=== PATIENT | female | born 1995 | race Caucasian/White ===

== ENCOUNTER 2019-08-11 18:04 | Emergency (ER) | payer SELFPAY ==
[2019-08-11 19:56] LABS: Urine Blood TRACE (NEG); Urine Glucose NEGATIVE (NEG); Urine Protein NEGATIVE (NEG); Urine Specific Gravity <1.005 (1.005-1.030)
[2019-08-11] MEDS ORDERED: METHOCARBAMOL 1,000 MG/10 ML VIAL IV ONE (20:00)
[2019-08-11] MEDS ORDERED: NA CHLORIDE 0.9% 100 ML IV ONE (20:00)
[2019-08-11] MEDS ORDERED: KETOROLAC 30 MG/ML INJ ONE (20:00)
[2019-08-11] MEDS ORDERED: dexAMETHasone 10 MG/ML VIAL ONE (20:00)
[2019-08-11] MEDS ORDERED: FENTANYL CITR 100 MCG/2 ML ONE ×2 (21:10→22:31)
[2019-08-11] MEDS ORDERED: ONDANSETRON 4 MG/2 ML VIAL ONE (21:10)
--- NOTE | 2019-08-11 22:13 | ER ---
Nurse's Notes [facility] Name: Elvia Lee Age: 24 yrs Sex: Female : 1995 Arrival Date: 08/11/2019 Time: 18:07 Bed 15 Private MD: Diagnosis: Radiculopathy, lumbar region Presentation: 08/11 18:12 Presenting complaint: Patient states: L lower back pain, hip pain that radiates to the ca1 L leg. Pt stated, "I had a back surgery 7 years ago. L4 was broke and they placed 2 plates and 6 rods. This is the worst pain in my life. I cannot sit comfortably and it hurts more when I walk". Denies fever, N/V, urinary S/S. Denies any injury to the area. Transition of care: patient was not received from another setting of care. Onset of symptoms was August 09, 2019. Risk Assessment: Do you want to hurt yourself or someone else? Patient reports no desire to harm self or others. Initial Sepsis Screen: Does the patient meet any 2 criteria? No. Patient's initial sepsis screen is negative. Does the patient have a suspected source of infection? No. Patient's initial sepsis screen is negative. Care prior to arrival: None. 18:12 Method Of Arrival: Ambulatory ca1 18:12 Acuity: VIRAL 4 ca1 Triage Assessment: 18:18 General: Appears in no apparent distress. uncomfortable, Behavior is calm, cooperative, ca1 appropriate for age. Pain: Complains of pain in left low back, L hip Pain radiates to left leg Pain currently is 8 out of 10 on a pain scale. at worst was 10 out of 10 on a pain scale. Quality of pain is described as heavy, shooting, numb, Pain began 2-3 days ago. Is continuous, Aggravated by weight bearing. EENT: No deficits noted. No signs and/or symptoms were reported regarding the EENT system. Neuro: Level of Consciousness is awake, alert, obeys commands, Oriented to person, place, time, situation, Appropriate for age. Derm: Skin is intact, is healthy with good turgor, Skin is pink, warm \\T\\ dry. Musculoskeletal: Circulation, motion, and sensation intact. Capillary refill < 3 seconds, Range of motion: intact in all extremities. 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 - Social history:: Smoking status: Patient uses tobacco products, smokes one-half pack cigarettes per day. - Ebola Screening: : Patient negative for fever greater than or equal to 101.5 degrees Fahrenheit, and additional compatible Ebola Virus Disease symptoms Patient denies exposure to infectious person Patient denies travel to an Ebola-affected area in the 21 days before illness onset No symptoms or risks identified at this time. Screenin:27 Abuse screen: Denies threats or abuse. Denies injuries from another. Nutritional ca1 screening: No deficits noted. Tuberculosis screening: No symptoms or risk factors identified. Fall Risk None identified. Assessment: 18:27 Reassessment: SEE TRIAGE ASSESSMENT. ca1 19:05 Reassessment: Patient appears in no apparent distress at this time. Patient and/or jb4 family updated on plan of care and expected duration. Pain level reassessed. Patient is alert, oriented x 3, equal unlabored respirations, skin warm/dry/pink. 20:00 Reassessment: Patient appears in no apparent distress at this time. Patient and/or jb4 family updated on plan of care and expected duration. Pain level reassessed. Patient is alert, oriented x 3, equal unlabored respirations, skin warm/dry/pink. 21:00 Reassessment: Patient appears in no apparent distress at this time. Patient and/or jb4 family updated on plan of care and expected duration. Pain level reassessed. Patient is alert, oriented x 3, equal unlabored respirations, skin warm/dry/pink. 22:00 Reassessment: Patient appears in no apparent distress at this time. Patient and/or jb4 family updated on plan of care and expected duration. Pain level reassessed. Patient is alert, oriented x 3, equal unlabored respirations, skin warm/dry/pink. Patient states feeling better. 22:45 Reassessment: Patient appears in no apparent distress at this time. Patient and/or jb4 family updated on plan of care and expected duration. Pain level reassessed. Patient is alert, oriented x 3, equal unlabored respirations, skin warm/dry/pink. PT verbalized understanding of d/c and follow up instructions. Ambulated out of ED with friend with steady gait. Patient states feeling better. Vital Signs: 18:18 BP 161 / 111; Pulse 105; Resp 17 S; Temp 98(O); Pulse Ox 100% on R/A; Weight 64.86 kg ca1 (R); Height 5 ft. 6 in. (167.64 cm) (R); Pain 8/10; 19:45 BP 132 / 100; Pulse 81; Resp 16; Pulse Ox 100% on R/A; jb4 20:30 BP 133 / 101; Pulse 89; Resp 16; Pulse Ox 100% on R/A; jb4 21:30 BP 151 / 87; Pulse 78; Resp 16; Pulse Ox 99% on R/A; jb4 22:30 BP 129 / 92; Pulse 70; Resp 16; Pulse Ox 99% on R/A; jb4 18:18 Body Mass Index 23.08 (64.86 kg, 167.64 cm) ca1 ED Course: 18:07 Patient arrived in ED. as 18:18 Triage completed. ca1 18:18 Arm band placed on right wrist. ca1 18:22 Iesha Coyne, JAMIE is Primary Nurse. ca1 18:26 Ramón Adorno PA is PHCP. jr8 18:26 Augustine Stearns MD is Attending Physician. jr8 18:27 Patient has correct armband on for positive identification. Bed in low position. Call ca1 light in reach. Side rails up X 1. Pulse ox on. NIBP on. Warm blanket given. 18:27 No provider procedures requiring assistance completed. Patient did not have IV access ca1 during this emergency room visit. 19:40 Inserted saline lock: 20 gauge in left antecubital area, using aseptic technique. Blood ds4 collected. 22:47 No provider procedures requiring assistance completed. IV discontinued, intact, jb4 bleeding controlled, No redness/swelling at site. Pressure dressing applied. Administered Medications: 20:35 Drug: TORadol - Ketorolac 15 mg Route: IVP; Site: left antecubital; jb4 21:00 Follow up: Response: No adverse reaction; Pain is decreased jb4 20:36 Drug: Decadron - Dexamethasone 10 mg Route: IVP; Site: left antecubital; jb4 22:43 Follow up: Response: No adverse reaction jb4 20:37 Drug: Robaxin 1 grams Route: IVPB; Infused Over: 1 hrs; Site: left antecubital; jb4 21:35 Follow up: Response: No adverse reaction; Pain is decreased; IV Status: Completed jb4 infusion; IV Intake: 100ml 21:28 Drug: Zofran 4 mg Route: IVP; Site: left antecubital; jb4 21:58 Follow up: Response: No adverse reaction jb4 21:30 Drug: fentaNYL (PF) 50 mcg {Note: Rass score 0.} Route: IVP; Site: left antecubital; jb4 22:00 Follow up: Response: No adverse reaction; Pain is decreased; RASS: Alert and Calm (0) jb4 22:41 Drug: fentaNYL (PF) 50 mcg {Note: Rass score 0.} Route: IVP; Site: left antecubital; jb4 22:42 Follow up: Response: No adverse reaction; Pain is decreased; RASS: Alert and Calm (0) jb4 Intake: 21:35 IV: 100ml; Total: 100ml. jb4 Outcome: 22:11 Discharge ordered by MD. tani 22:47 Discharged to home ambulatory, with friend. jb4 22:47 Condition: stable 22:47 Discharge instructions given to patient, friend, Instructed on discharge instructions, follow up and referral plans. medication usage, Demonstrated understanding of instructions, follow-up care, medications, Prescriptions given X 3. 22:48 Patient left the ED. jb4 Signatures: Evy Nunez Josh, PA PA jr8 Nirav Harper ds4 Roger Walker RN RN jb4 Iesha Coyne RN RN ca1 Corrections: (The following items were deleted from the chart) 18:21 18:12 Presenting complaint: Patient states: L lower back pain, hip pain that radiates ca1 to the L leg. Pt stated, "I had a back surgery 7 years ago. L4 was broke and they placed 2 plates and 6 rods. This is the worst pain in my life. I cannot sit comfortably and it hurts more when I walk". Denies fever, N/V, urinary S/S. ca1
--- NOTE | 2019-08-11 22:13 | EDPHYS ---
Physician Documentation [facility] Name: Elvia Lee Age: 24 yrs Sex: Female : 1995 Arrival Date: 08/11/2019 Time: 18:07 Bed 15 Private MD: ED Physician Augustine Stearns HPI: 08/11 19:14 This 24 yrs old Female presents to ER via Ambulatory with complaints of Hip jr8 Pain. 19:14 The patient or guardian reports decreased range of motion, pain. that occurred at home, jr8 sustained from unknown reason. The complaints affect the left leg. Onset: The symptoms/episode began/occurred acutely, 2 day(s) ago, and became worse and became persistent. Modifying factors: The symptoms are alleviated by nothing, the symptoms are aggravated by any movement. Associated signs and symptoms: Pertinent positives: None. Severity of symptoms: At their worst the symptoms were moderate, in the emergency department the symptoms are unchanged. The patient has experienced a previous episode. The patient has not recently seen a physician. Patient with history of back pain secondary to previous injury that had to have surgery. Stated that it started to ache over the past couple of days. Getting worse and without relief with OTC medication. Radiation down left hip now. 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 - Social history:: Smoking status: Patient uses tobacco products, smokes one-half pack cigarettes per day. - Ebola Screening: : Patient negative for fever greater than or equal to 101.5 degrees Fahrenheit, and additional compatible Ebola Virus Disease symptoms Patient denies exposure to infectious person Patient denies travel to an Ebola-affected area in the 21 days before illness onset No symptoms or risks identified at this time. ROS: 19:14 Eyes: Negative for injury, pain, redness, and discharge, ENT: Negative for injury, jr8 pain, and discharge, Neck: Negative for injury, pain, and swelling, Cardiovascular: Negative for chest pain, palpitations, and edema, Respiratory: Negative for shortness of breath, cough, wheezing, and pleuritic chest pain, Abdomen/GI: Negative for abdominal pain, nausea, vomiting, diarrhea, and constipation, Skin: Negative for injury, rash, and discoloration, Neuro: Negative for headache, weakness, numbness, tingling, and seizure. 19:14 MS/Extremity: Negative for injury and deformity. 19:14 Back: Positive for pain at rest, pain with movement, radiated pain, of the left leg. Exam: 19:14 Eyes: Pupils equal round and reactive to light, extra-ocular motions intact. Lids and jr8 lashes normal. Conjunctiva and sclera are non-icteric and not injected. Cornea within normal limits. Periorbital areas with no swelling, redness, or edema. ENT: Nares patent. No nasal discharge, no septal abnormalities noted. Tympanic membranes are normal and external auditory canals are clear. Oropharynx with no redness, swelling, or masses, exudates, or evidence of obstruction, uvula midline. Mucous membranes moist. Neck: Trachea midline, no thyromegaly or masses palpated, and no cervical lymphadenopathy. Supple, full range of motion without nuchal rigidity, or vertebral point tenderness. No Meningismus. Cardiovascular: Regular rate and rhythm with a normal S1 and S2. No gallops, murmurs, or rubs. Normal PMI, no JVD. No pulse deficits. Respiratory: Lungs have equal breath sounds bilaterally, clear to auscultation and percussion. No rales, rhonchi or wheezes noted. No increased work of breathing, no retractions or nasal flaring. Abdomen/GI: Soft, non-tender, with normal bowel sounds. No distension or tympany. No guarding or rebound. No evidence of tenderness throughout. Skin: Warm, dry with normal turgor. Normal color with no rashes, no lesions, and no evidence of cellulitis. MS/ Extremity: Pulses equal, no cyanosis. Neurovascular intact. Full, normal range of motion. Neuro: Awake and alert, GCS 15, oriented to person, place, time, and situation. Cranial nerves II-XII grossly intact. Motor strength 5/5 in all extremities. Sensory grossly intact. Cerebellar exam normal. Normal gait. 19:14 Back: pain, that is moderate, of the left low back, ROM is painful, normal spinal alignment noted, CVA tenderness, is absent, muscle spasm, is not present, Straight leg raises: left lower extremity illicits pain, at 30 degrees. Vital Signs: 18:18 BP 161 / 111; Pulse 105; Resp 17 S; Temp 98(O); Pulse Ox 100% on R/A; Weight 64.86 kg ca1 (R); Height 5 ft. 6 in. (167.64 cm) (R); Pain 8/10; 19:45 BP 132 / 100; Pulse 81; Resp 16; Pulse Ox 100% on R/A; jb4 20:30 BP 133 / 101; Pulse 89; Resp 16; Pulse Ox 100% on R/A; jb4 21:30 BP 151 / 87; Pulse 78; Resp 16; Pulse Ox 99% on R/A; jb4 22:30 BP 129 / 92; Pulse 70; Resp 16; Pulse Ox 99% on R/A; jb4 18:18 Body Mass Index 23.08 (64.86 kg, 167.64 cm) ca1 MDM: 18:26 Patient medically screened. jr8 22:09 Data reviewed: vital signs, nurses notes, and as a result, I will discharge patient. jr8 Data interpreted: Pulse oximetry: on room air is 100 %. Interpretation: normal. Counseling: I had a detailed discussion with the patient and/or guardian regarding: the historical points, exam findings, and any diagnostic results supporting the discharge/admit diagnosis, the need for outpatient follow up, a family practitioner, to return to the emergency department if symptoms worsen or persist or if there are any questions or concerns that arise at home. Response to treatment: the patient's symptoms have markedly improved after treatment. 08/11 19:26 Order name: Test, Serum; Complete Time: 20:17 jb4 08/11 19:32 Order name: Urine Dipstick--Ancillary (enter results); Complete Time: 20:07 ar5 08/11 18:50 Order name: IV; Complete Time: 19:42 jr8 08/11 18:50 Order name: Urine Test (obtain specimen); Complete Time: 19:26 jr8 08/11 18:50 Order name: Urine Dipstick-Ancillary (obtain specimen); Complete Time: 19:26 jr8 Administered Medications: 20:35 Drug: TORadol - Ketorolac 15 mg Route: IVP; Site: left antecubital; jb4 21:00 Follow up: Response: No adverse reaction; Pain is decreased jb4 20:36 Drug: Decadron - Dexamethasone 10 mg Route: IVP; Site: left antecubital; jb4 22:43 Follow up: Response: No adverse reaction jb4 20:37 Drug: Robaxin 1 grams Route: IVPB; Infused Over: 1 hrs; Site: left antecubital; jb4 21:35 Follow up: Response: No adverse reaction; Pain is decreased; IV Status: Completed jb4 infusion; IV Intake: 100ml 21:28 Drug: Zofran 4 mg Route: IVP; Site: left antecubital; jb4 21:58 Follow up: Response: No adverse reaction jb4 21:30 Drug: fentaNYL (PF) 50 mcg {Note: Rass score 0.} Route: IVP; Site: left antecubital; jb4 22:00 Follow up: Response: No adverse reaction; Pain is decreased; RASS: Alert and Calm (0) jb4 22:41 Drug: fentaNYL (PF) 50 mcg {Note: Rass score 0.} Route: IVP; Site: left antecubital; jb4 22:42 Follow up: Response: No adverse reaction; Pain is decreased; RASS: Alert and Calm (0) 4 Disposition: 08/12 20:58 Co-signature as Attending Physician, Augustine Stearns MD I agree with the assessment and kdr plan of care. Disposition: 08/11/19 22:11 Discharged to Home. Impression: Radiculopathy, lumbar region. - Condition is Stable. - Discharge Instructions: Lumbosacral Radiculopathy. - Prescriptions for meloxicam 15 mg Oral tablet - take 1 tablet by ORAL route once daily As needed; 20 tablet. Zanaflex 4 mg Oral Tablet - take 1 tablet by ORAL route every 8 hours As needed; 20 tablet. Medrol (Dean) 4 mg Oral Tablets, Dose Pack - take 1 tablet by ORAL route as directed - follow package instructions; 1 packet. - Work release form, Family Work Release, Medication Reconciliation Form, Thank You Letter, Antibiotic Education, Prescription Opioid Use form. - Follow up: Private Physician; When: 2 - 3 days; Reason: Recheck today's complaints, Continuance of care, Re-evaluation by your physician. - Problem is new. - Symptoms have improved. Signatures: Dispatcher [employer] EDMS Augustine Stearns MD MD [facility] Ramón Adorno PA PA jr8 Roger Walker RN RN jb4 Iesha Coyne RN RN ca1 Corrections: (The following items were deleted from the chart) 08/11 22:48 22:11 08/11/2019 22:11 Discharged to Home. Impression: Radiculopathy, lumbar region. jb4 Condition is Stable. Forms are Medication Reconciliation Form, Thank You Letter, Antibiotic Education, Prescription Opioid Use. Follow up: Private Physician; When: 2 - 3 days; Reason: Recheck today's complaints, Continuance of care, Re-evaluation by your physician. Problem is new. Symptoms have improved. jr8
[2019-08-12 02:06] VITALS: TEMP 98
[2019-08-12 02:16] VITALS: BP 129/92; O2SAT 99
== END 2019-08-11 22:48 | disposition home or self-care (01) ==
LOC: ER 18:04
DX: M54.16 Radiculopathy, lumbar region (principal); F17.210 Nicotine dependence, cigarettes, uncomplicated
CPT/HCPCS: 36415; 81003; 84703; 96365; 96375; 99284; J1100; J2405; J2800; J3010